=== PATIENT | female | born 1935 | race Caucasian/White ===

== ENCOUNTER 2021-10-30 16:12 | Outpatient (CLI) | payer MEDICARE, SELFPAY ==
[2021-10-30 20:46] LABS: Cholesterol* 192 mg/dL (90-199)
[2021-10-30 20:47] LABS: HDL Cholesterol* 67 mg/dL (>=50); LDL Cholesterol Calculated 107 mg/dL (<100); Triglycerides* 92 mg/dL (40-149)
== END 2021-10-30 16:13 | disposition home or self-care (01) ==
PROVIDERS: PCP Internal Medicine; Visit Provider Internal Medicine
DX: Z00.00 Encounter for general adult medical examination without abnormal findings (principal); E78.5 Hyperlipidemia, unspecified; E03.9 Hypothyroidism, unspecified; F41.9 Anxiety disorder, unspecified; F32.9 Major depressive disorder, single episode, unspecified
CPT/HCPCS: 80061; 84443

== ENCOUNTER 2022-06-25 13:59 | Emergency (ER) | payer MEDICARE, SELFPAY ==
[2022-06-25] VITALS (10 sets, daily range): BP systolic 128–151; BP diastolic 61–116; PULSE 89–121; RESP 20; TEMP 36.6; O2SAT 94–100; BMI 25.1
--- NOTE | 2022-06-25 14:26 | CRLHL7_ITS ---
For Patients: As a result of the Century Cures Act, medical imaging exams and procedure reports are released immediately into your electronic medical record. You may view this report before your referring provider. If you have questions, please contact your health care provider. INDICATION: Dyspnea on exertion. TECHNIQUE: Chest 2 views. COMPARISON: None. FINDINGS: Cardiovascular and mediastinum: Heart size and vasculature are normal in caliber and appearance. Lungs and pleural spaces: Chronic appearing interstitial prominence. Lungs are clear. No sign of infiltrate or mass. No sign of pleural effusion. No pneumothorax. Bones and soft tissues: No significant findings. IMPRESSION: Chronic appearing interstitial prominence. No focal consolidations. Dictated by Levy Ward MD @ 06/25/2022 4:20:13 PM (Electronically Signed)
--- NOTE | 2022-06-25 14:29 | ED_ITS ---
HPI - SOB/Dyspnea General Chief Complaint: Shortness of Breath/Dyspnea Stated Complaint: Short of breath Time Seen by Provider: 06/25/22 14:01 History of Present Illness HPI Narrative: 86-year-old woman sent over by the urgent care with concerns of cardiac disease. Care provider called ahead. She has been feeling shortness of breath and noting a just-tachycardia with ambulation over the last couple of weeks. Admittedly her sleep has been poor; she would typically described herself as a very good sleeper he even ?brag?ing about that ability. Does not describe herself as sleepy though but more generally quite fatigued. Over the same time. She has had some jags of coughing but not persistent. Initially productive of mucus has turned thicker. Did smoke maybe 60 years ago. She has not had any fever. Is not feeling lightheaded or nor describing dizziness. No chest pain. No abdominal pain. No melena or hematochezia noted. Notes siblings with pulmonary disease. Presents with EKG from clinic which have review which does show a right bundle branch block. There is a PVC. Otherwise I do not appreciate ischemic changes. I do not have prior for comparison at this time. Related Data Previous Rx's Medication Instructions Recorded levothyroxine 25 mcg tablet 25 mcg PO DAILY #90 tabs 10/31/21 lorazepam 0.5 mg tablet 0.5 mg PO QDAY PRN anxiety #30 tabs 06/14/22 Allergies Allergy/AdvReac Type Severity Reaction Status Date / Time Sulfa drugs Allergy Intermediate Rash Uncoded 06/25/22 13:26 Review of Systems Status of ROS: Reports: 10 or more systems reviewed and unremarkable except as noted in History and below [facility] Medical History History of colon polyps Surgical History History of hysterectomy (12/17/08) History of tubal ligation (12/17/08) Status post cataract extraction (12/17/08) Social History Smoking Status: Never smoker How often do you have a drink containing alcohol: never AUDIT-C Alcohol total score: 0 Non-prescribed substance use: denies use Little interest or pleasure in doing things: not at all Feeling down, depressed, or hopeless: not at all Exam Narrative: Exam Narrative: Very pleasant. Working her iPhone. A little levelock. Cranial nerves 2-12 otherwise intact. Voice is little hoarse. Oropharynx is a little sticky without erythema. Breathing easily otherwise. No stridor. Vitals noted. Skin is warm and dry without rash. Lower extremities with mild dependent edema. Well perfused peripherally. Lungs appear to be clear. Heart is in a regular rhythm in an elevated rate. Abdomen is soft protuberant nontender. No masses appreciated. Const: Vital Signs, click to edit/add: Vital Signs - 24 hr 06/25/22 14:05 06/25/22 14:49 06/25/22 14:58 Temperature 97.8 F Pulse Rate Pulse Rate [Pulse Oximeter] 100 121 H Respiratory Rate 20 20 Blood Pressure Blood Pressure [Ri ght Upper Arm] 151/81 H Pulse Oximetry 96 94 94 Oxygen Delivery Me thod Room Air Room Air 06/25/22 15:09 06/25/22 15:10 06/25/22 15:30 Temperature Pulse Rate 96 99 94 Pulse Rate [Pulse Oximeter] Respiratory Rate Blood Pressure 128/61 Blood Pressure [Ri ght Upper Arm] Pulse Oximetry 98 96 100 Oxygen Delivery Me thod 06/25/22 15:32 06/25/22 16:00 06/25/22 16:02 Temperature Pulse Rate 95 89 90 Pulse Rate [Pulse Oximeter] Respiratory Rate Blood Pressure 133/63 136/84 Blood Pressure [Ri ght Upper Arm] Pulse Oximetry 97 98 97 Oxygen Delivery Me thod 06/25/22 16:32 Temperature Pulse Rate Pulse Rate [Pulse Oximeter] Respiratory Rate Blood Pressure 129/116 H Blood Pressure [Ri ght Upper Arm] Pulse Oximetry Oxygen Delivery Me thod Documenting provider has reviewed patient's vital signs: yes Course Vital Signs Vital signs: Initial Vital Signs Temperature 97.8 F 06/25/22 14:05 Temperature Source Temporal Artery Scan 06/25/22 14:05 Pulse Rate 100 06/25/22 14:05 Respiratory Rate 20 06/25/22 14:05 Blood Pressure 151/81 H 06/25/22 14:05 Blood Pressure Mean 104 06/25/22 14:05 Pulse Oximetry 96 06/25/22 14:05 Oxygen Delivery Method 06/25/22 14:05 Vital Signs Temperature 97.8 F 06/25/22 14:05 Pulse Rate 100 06/25/22 14:05 Respiratory Rate 20 06/25/22 14:05 Blood Pressure 151/81 H 06/25/22 14:05 Pulse Oximetry 96 06/25/22 14:05 Oxygen Delivery Method 06/25/22 14:05 Temperature 97.8 F 06/25/22 14:05 Pulse Rate 90 06/25/22 16:02 Respiratory Rate 20 06/25/22 14:49 Blood Pressure 129/116 H 06/25/22 16:32 Pulse Oximetry 97 06/25/22 16:02 Oxygen Delivery Method 06/25/22 14:49 MDM - SOB/Dyspnea MDM Narrative Medical decision making narrative: Differential with exertionally dyspneic being heart failure, ischemic heart disease, pulmonary embolus, pericarditis/myocarditis, pneumothorax, pneumomediastinum, pneumonia The no events on monitor during time in the emergency department. Generally not hypoxic nor tachycardic. Well at rest. However ambulates in the emergency department with oxygen saturations to 94% and heart rate up to 121. Chest x-ray reviewed by me seems to be most with some fibrotic changes or possibly more interstitial prominence Labs overall reassuring. Radiology x-ray over-read IMPRESSION: Chronic appearing interstitial prominence. No focal consolidations. We discussed potential treatments. Perhaps viral process left her with some degree of ?bronchitis? and laryngitis. Discussed potential benefit of prednisone though unclear. She would like to proceed with that. Anticipate close follow-up with primary care provider. If not improved would warrant further cardiopulmonary evaluation. Medical Records Attestation: I reviewed the patient's medical records. Lab Data Attestation: I reviewed the patient's lab results. Labs: Lab Results 06/25/22 06/25/22 06/25/22 Range/Units 14:26 14:41 14:41 WBC 8.10 (4.50-11.00) K/uL RBC 4.22 (4.00-5.20) m/uL Hgb 12.4 (12.0-16.0) gm/dL Hct 38.2 (33.0-51.0) % MCV 91 (80-100) fL MCH 29 (26-34) pg MCHC 33 (32-36) gm/dL RDW Coeff of Aditi 16.5 H (11.5-15.5) % Plt Count 88 L (140-440) K/uL Neut % (Auto) 30.4 L (42.0-72.0) % Lymph % (Auto) 21.0 (20-44) % Hardin % (Auto) 46.5 H (0.0-11.0) % Eos % (Auto) 0.7 (0.0-7.0) % Baso % (Auto) 0.5 (0.0-3.0) % Neut # (Auto) 2.50 (1.7-7.0) K/uL Lymph # (Auto) 1.70 (0.90-2.90) K/uL Hardin # (Auto) 3.80 H (0.00-0.90) K/UL Eos # (Auto) 0.06 (0.00-0.50) K/uL Baso # (Auto) 0.04 (0.00-0.30) K/uL Diff Slide Review Acceptable Review (Acceptable) D-Dimer Quant (PE/DVT) 0.33 (0.00-0.50) ug/ml VBG pH (7.32-7.43) VBG pCO2 (40-50) mmHG VBG pO2 (25-47) mmHG VBG HCO3 (21-28) mmol/L Sodium (135-149) mmol/L Potassium (3.6-5.1) mmol/L Chloride (96-114) mmol/L Carbon Dioxide (20-32) mmol/L BUN (7-30) mg/dL Creatinine (0.5-1.5) mg/dL Estimated Creat Clear Estimated GFR ml/min Glucose (60-115) mg/dL Calcium (8.4-10.6) mg/dL Magnesium (1.5-2.6) mg/dL Total Bilirubin (0.1-1.5) mg/dL Direct Bilirubin (0.0-0.5) mg/dL AST (12-35) U/L ALT (4-35) U/L Alkaline Phosphatase (40-150) U/L Troponin I (0.01-0.04) ng/mL C-Reactive Protein (0.5-1.0) mg/dL NT-Pro-B Natriuret Pep pg/mL Total Protein (6.0-8.3) g/dL Albumin (3.3-5.0) g/dL TSH (0.270-4.20) uIU/mL Urine Color (Yellow) Urine Appearance (Clear) Urine pH (5.0-8.5) Ur Specific [place] (1.000-1.030) Urine Protein (Negative) Urine Glucose (UA) (Negative) Urine Ketones (Negative) Urine Blood (Negative) Urine Nitrite (Negative) Urine Bilirubin (Negative) Urine Urobilinogen (0.2-1.0) Ur Leukocyte Esterase (Negative) Urine RBC (0-2) Urine WBC (0-5) Ur Squamous Epith Cells (None-Few) Urine Bacteria (None) SARS-CoV-2 (PCR) Negative SARS-CoV-2 (Negative) Influenza Type A (PCR) Negative PCR FLU A (Negative) Influenza Type B (PCR) Negative PCR FLU B (Negative) RSV (PCR) Negative PCR RSV (Negative) 06/25/22 06/25/22 06/25/22 Range/Units 14:41 14:41 14:41 WBC (4.50-11.00) K/uL RBC (4.00-5.20) m/uL Hgb (12.0-16.0) gm/dL Hct (33.0-51.0) % MCV (80-100) fL MCH (26-34) pg MCHC (32-36) gm/dL RDW Coeff of Aditi (11.5-15.5) % Plt Count (140-440) K/uL Neut % (Auto) (42.0-72.0) % Lymph % (Auto) (20-44) % Hardin % (Auto) (0.0-11.0) % Eos % (Auto) (0.0-7.0) % Baso % (Auto) (0.0-3.0) % Neut # (Auto) (1.7-7.0) K/uL Lymph # (Auto) (0.90-2.90) K/uL Hardin # (Auto) (0.00-0.90) K/UL Eos # (Auto) (0.00-0.50) K/uL Baso # (Auto) (0.00-0.30) K/uL Diff Slide Review (Acceptable) D-Dimer Quant (PE/DVT) (0.00-0.50) ug/ml VBG pH 7.337 (7.32-7.43) VBG pCO2 52 H (40-50) mmHG VBG pO2 23.2 L (25-47) mmHG VBG HCO3 28 (21-28) mmol/L Sodium 140 (135-149) mmol/L Potassium 4.8 (3.6-5.1) mmol/L Chloride 106 (96-114) mmol/L Carbon Dioxide 28 (20-32) mmol/L BUN 26 (7-30) mg/dL Creatinine 1.1 (0.5-1.5) mg/dL Estimated Creat Clear 28.73 Estimated GFR 50 ml/min Glucose 110 (60-115) mg/dL Calcium 9.0 (8.4-10.6) mg/dL Magnesium 1.8 (1.5-2.6) mg/dL Total Bilirubin 0.6 (0.1-1.5) mg/dL Direct Bilirubin 0.2 (0.0-0.5) mg/dL AST 23 (12-35) U/L ALT 14 (4-35) U/L Alkaline Phosphatase 76 (40-150) U/L Troponin I < 0.01 L (0.01-0.04) ng/mL C-Reactive Protein 1.0 (0.5-1.0) mg/dL NT-Pro-B Natriuret Pep 153 pg/mL Total Protein 6.7 (6.0-8.3) g/dL Albumin 4.2 (3.3-5.0) g/dL TSH (0.270-4.20) uIU/mL Urine Color (Yellow) Urine Appearance (Clear) Urine pH (5.0-8.5) Ur Specific [place] (1.000-1.030) Urine Protein (Negative) Urine Glucose (UA) (Negative) Urine Ketones (Negative) Urine Blood (Negative) Urine Nitrite (Negative) Urine Bilirubin (Negative) Urine Urobilinogen (0.2-1.0) Ur Leukocyte Esterase (Negative) Urine RBC (0-2) Urine WBC (0-5) Ur Squamous Epith Cells (None-Few) Urine Bacteria (None) SARS-CoV-2 (PCR) (Negative) Influenza Type A (PCR) (Negative) Influenza Type B (PCR) (Negative) RSV (PCR) (Negative) 06/25/22 06/25/22 Range/Units 14:41 14:53 WBC (4.50-11.00) K/uL RBC (4.00-5.20) m/uL Hgb (12.0-16.0) gm/dL Hct (33.0-51.0) % MCV (80-100) fL MCH (26-34) pg MCHC (32-36) gm/dL RDW Coeff of Aditi (11.5-15.5) % Plt Count (140-440) K/uL Neut % (Auto) (42.0-72.0) % Lymph % (Auto) (20-44) % Hardin % (Auto) (0.0-11.0) % Eos % (Auto) (0.0-7.0) % Baso % (Auto) (0.0-3.0) % Neut # (Auto) (1.7-7.0) K/uL Lymph # (Auto) (0.90-2.90) K/uL Hardin # (Auto) (0.00-0.90) K/UL Eos # (Auto) (0.00-0.50) K/uL Baso # (Auto) (0.00-0.30) K/uL Diff Slide Review (Acceptable) D-Dimer Quant (PE/DVT) (0.00-0.50) ug/ml VBG pH (7.32-7.43) VBG pCO2 (40-50) mmHG VBG pO2 (25-47) mmHG VBG HCO3 (21-28) mmol/L Sodium (135-149) mmol/L Potassium (3.6-5.1) mmol/L Chloride (96-114) mmol/L Carbon Dioxide (20-32) mmol/L BUN (7-30) mg/dL Creatinine (0.5-1.5) mg/dL Estimated Creat Clear Estimated GFR ml/min Glucose (60-115) mg/dL Calcium (8.4-10.6) mg/dL Magnesium (1.5-2.6) mg/dL Total Bilirubin (0.1-1.5) mg/dL Direct Bilirubin (0.0-0.5) mg/dL AST (12-35) U/L ALT (4-35) U/L Alkaline Phosphatase (40-150) U/L Troponin I (0.01-0.04) ng/mL C-Reactive Protein (0.5-1.0) mg/dL NT-Pro-B Natriuret Pep pg/mL Total Protein (6.0-8.3) g/dL Albumin (3.3-5.0) g/dL TSH 3.990 (0.270-4.20) uIU/mL Urine Color Yellow (Yellow) Urine Appearance Clear (Clear) Urine pH 6.0 (5.0-8.5) Ur Specific [place] 1.020 (1.000-1.030) Urine Protein 2+ A (Negative) Urine Glucose (UA) Negative (Negative) Urine Ketones Negative (Negative) Urine Blood Trace-intact A (Negative) Urine Nitrite Negative (Negative) Urine Bilirubin Negative (Negative) Urine Urobilinogen 0.2 (0.2-1.0) Ur Leukocyte Esterase Negative (Negative) Urine RBC 0-2 (0-2) Urine WBC 0-2 (0-5) Ur Squamous Epith Cells None (None-Few) Urine Bacteria None (None) SARS-CoV-2 (PCR) (Negative) Influenza Type A (PCR) (Negative) Influenza Type B (PCR) (Negative) RSV (PCR) (Negative) Discharge Plan Discharge Clinical Impression: Exertional dyspnea, Laryngitis Patient Disposition: Home, Self-Care Condition: Stable Additional Instructions: Keep trying to be active. I see no reason why you can not. Perhaps it is just a bug as you say that has gotten you under the weather so to speak. See how it goes after this treatment and then follow up with Dr. Sue to consider further evaluation. Your oxygen saturations did drop a little while you're walking and your heart rate did indeed go up. Stay well-hydrated. Maybe sleep under the mist of a cool mist humidifier. prednisone from [facility] Next return for increasing persistent shortness of breath, chest pain, weakness, lightheadedness. Prescriptions: No Action levothyroxine 25 mcg tablet 25 mcg PO DAILY Qty: 90 3RF lorazepam 0.5 mg tablet 0.5 mg PO QDAY PRN (Reason: anxiety) Qty: 30 0RF Rx Instructions: USE SPARINGLY Follow Up/Referrals: Nette Sue MD [Primary Care Provider] - Stand Alone Forms: [employer] Info Instructions
[2022-06-25 14:50] LABS: Basophils Absolute Auto 0.04 K/uL (0.00-0.30); Basophils Percent Auto 0.5 % (0.0-3.0); Eosinophils Absolute Auto 0.06 K/uL (0.00-0.50); Eosinophils Percent Auto 0.7 % (0.0-7.0); HCO3 VBG 28 mmol/L (21-28); Hematocrit 38.2 % (33.0-51.0); Hemoglobin* 12.4 gm/dL (12.0-16.0); Immature Granulocytes Abs Auto 0.07 K/uL (0.00-0.30); Immature Granulocytes Pct Auto 0.9 %; Mean Corpuscular HGB Conc 33 gm/dL (32-36); Mean Corpuscular Hemoglobin 29 pg (26-34); Mean Corpuscular Volume 91 fL (80-100); Monocytes Percent Auto 46.5 % (0.0-11.0); Neutrophils Percent Auto 30.4 % (42.0-72.0); PCO2 VBG 52 mmHG (40-50); PO2 VBG 23.2 mmHG (25-47); Platelet Count* 88 K/uL (140-440); RDW Coefficient of Variation % 16.5 % (11.5-15.5); Red Blood Count 4.22 m/uL (4.00-5.20); pH VBG 7.337 (7.32-7.43)
--- NOTE | 2022-06-25 14:50 | ED.NURSE ---
pt ambulating at fast pace, states she is more sob than normal but does not appear sob. sats 94% while amblulating. HR 121
[2022-06-25 15:10] LABS: Appearance Urine Clear (Clear); Bilirubin Urine Negative (Negative); Blood Urine Trace-intact (Negative); Color Urine Yellow (Yellow); Glucose Urine Negative (Negative); Ketones Urine Negative (Negative); Leukocyte Esterase Urine Negative (Negative); Nitrite Urine Negative (Negative); Protein Urine 2+ (Negative); Urobilinogen Urine 0.2 (0.2-1.0)
[2022-06-25 15:16] LABS: PCR FLU A Negative PCR FLU A (Negative); PCR FLU B Negative PCR FLU B (Negative); PCR RSV Negative PCR RSV (Negative); SARS PCR* Negative SARS-CoV-2 (Negative)
[2022-06-25 15:24] LABS: Albumin* 4.2 g/dL (3.3-5.0); Sodium* 140 mmol/L (135-149)
[2022-06-25 15:25] LABS: Potassium* 4.8 mmol/L (3.6-5.1)
[2022-06-25 15:27] LABS: Creatinine* 1.1 mg/dL (0.5-1.5); Est. Creatinine Clearance* 28.73; Estimated Glomerular Filt Rate 50 ml/min
[2022-06-25 15:27] LABS: RBC Urine 0-2 (0-2); WBC Urine 0-2 (0-5)
[2022-06-25 15:28] LABS: Alanine Aminotransferase* 14 U/L (4-35); Alkaline Phosphatase* 76 U/L (40-150); Aspartate Amino Transferase* 23 U/L (12-35); Bilirubin Direct* 0.2 mg/dL (0.0-0.5); Bilirubin Total* 0.6 mg/dL (0.1-1.5); Blood Urea Nitrogen* 26 mg/dL (7-30); Carbon Dioxide* 28 mmol/L (20-32); Glucose* 110 mg/dL (60-115); Magnesium* 1.8 mg/dL (1.5-2.6); Total Protein* 6.7 g/dL (6.0-8.3)
[2022-06-25 15:37] LABS: NT Pro B Type NatriureticPept* 153 pg/mL
[2022-06-25 15:41] LABS: Chloride* 106 mmol/L (96-114)
[2022-06-25 15:45] LABS: Troponin I* < 0.01 ng/mL (0.01-0.04)
[2022-06-25 15:48] LABS: D Dimer Quantitative* 0.33 ug/ml (0.00-0.50)
[2022-06-25 15:52] LABS: Slide Review Reflex Yes
[2022-06-25 15:53] LABS: Slide Review Acceptable Review (Acceptable)
== END 2022-06-25 16:52 | disposition home or self-care (01) ==
PROVIDERS: Emergency Provider Family Medicine; PCP Internal Medicine
DX: R06.09 Other forms of dyspnea (principal); J04.0 Acute laryngitis
CPT/HCPCS: 36415; 71046; 80048; 80076; 81001; 82803; 83735; 83880; 84443; 84484; 85025; 85379; 86140; 87502; 87634; 87635; 94761; 99284

== ENCOUNTER 2022-08-16 07:44 | Outpatient (CLI) | payer MEDICARE, SELFPAY ==
--- NOTE | 2022-08-16 08:00 | CRLHL7_ITS ---
For Patients: As a result of the Century Cures Act, medical imaging exams and procedure reports are released immediately into your electronic medical record. You may view this report before your referring provider. If you have questions, please contact your health care provider. [facility] ??? [facility] MYOCARDIAL PERFUSION SCAN CLINICAL HISTORY: 86-year-old female. Right bundle branch block. Dyspnea on exertion. Hyperlipidemia. Height 5 feet 1 inch, 134 pounds. TECHNIQUE: (Resting SPECT and Stress Gated SPECT with wall motion and ejection fraction) Stress: Pharmacologic ??? Regadenoson (0.4) (IV) walking protocol Dose (Stress/Rest): 31.9 mCi/8.68 mCi Tc-99m Sestamibi (IV) Comparison: None FINDINGS: There is good uptake of activity by the left ventricle. No left ventricular enlargement is noted. End-diastolic volume 56 mL. End-systolic volume 17 mL. There are no significant fixed or reversible defects are identified. Gated images demonstrate a normal left ventricular ejection fraction of 70 percent. No regional wall motion abnormalities are identified. IMPRESSION: 1. No evidence of significant myocardial ischemia or infarction. 2. Normal left ventricular ejection fraction of 70 percent. This study was jointly reviewed by radiology and cardiology. ALEXIS FAITH M.D. Diagnostic/Nuclear Medicine Radiologist [employer] [email or web address] Transcribed: 3:39 PM CO-READER SANTY GUERRIER M.D. CARDIOLOGY DW/Dictated by: Alexis Faith MD @ 08/16/2022 2:24:00 PM (Electronically Signed)
[2022-08-16] MEDS: SODIUM CHLORIDE 0.9 % (FLUSH) 10 ML SYRINGE IVF (09:04)
[2022-08-16] MEDS: REGADENOSON 0.4 MG/5 ML SYRINGE IVP (09:04)
--- NOTE | 2022-08-16 10:00 | W.PM.STED ---
Stress Test Note Date Date Seen: 08/16/22 Date of test: 08/16/22 Providers Primary care provider: Nette Sue Stress test physician: Fatoumata Us Stress Test Note Stress test ordered: Lexiscan Indication for test: Dyspnea on exertion Stress test medicine: Lexiscan Results discussion: Resting EKG: Sinus rhythm, 90 beats per minute. Right bundle branch block. Resting blood pressure: 132/81 Stress test: Patient completed a walking Lexiscan. She did feel some mild shortness of breath. Her pulse oximetry was checked during the walking portion of this stress test about 3 minutes in, was good at 96%. No definitive ischemic change seen, no arrhythmia patient had a maximal blood pressure of 167/68. Await imaging studies for a full formal diagnostic. Patient was discharged from the stress test portion in stable condition. Impression: Negative EKG portion of this Lexiscan. Follow up suggested: Patient will have her post-stress/exercise images taken. These will be read by Cardiology/Radiology to complete a full formal diagnostic stress test. She will await the report from her primary care provider.
[2022-08-16 10:41] VITALS: BP 151/83; PULSE 113
== END 2022-08-16 07:45 | disposition home or self-care (01) ==
LOC: STRESS 07:45
PROVIDERS: PCP Internal Medicine; Visit Provider Internal Medicine
DX: R06.09 Other forms of dyspnea (principal); I45.10 Unspecified right bundle-branch block; E78.5 Hyperlipidemia, unspecified
CPT/HCPCS: 78452; 93016; 93017; A9500; J2785

== ENCOUNTER 2022-12-05 12:53 | Outpatient (CLI) | payer MEDICARE, SELFPAY ==
--- NOTE | 2022-12-05 13:00 | XR_ITS ---
Final Report Patient: EMMANUELLE LEAVITT Facility:?[facility] Patient ID:?[id number] Study:?DEXA Bone Density DEXA - SPINE/HIPS-12/05/2022 2:35:30 PM Ordering Physician:Kenzie Angel Final Report: DXA BONE MINERAL DENSITY STUDY Current height (in): 65.7. Weight (lb): 125.0. Menopause age: N/A. Ethnicity: White. Reason for exam: Postmenopausal screening. 1. Have you had a previous hip or vertebral fracture? No. 2. Have you had any fractures during your adult life which did not result from significant trauma (e.g., auto accident)? No. 3. Did either of your parents have a hip fracture? No. 4. Do you smoke? No. 5. Have you ever taken Glucocorticoids? No. 6. Do you have rheumatoid arthritis? No. 7. Do you have secondary osteoporosis? No. 8. Do you drink 3 or more alcoholic drinks per day? No. 9. Are you being treated for osteoporosis? No. 10. Have you ever taken any of the following medications: Actonel, Evista, Fosamax, Miacalcin, Reclast, Boniva, Forteo, HRT (i.e. estrogen/hormone therapy), Protelos, Prolia, Vitamin D, Calcium, other ? please specify. ANSWER: No. 11. Do you have any of the following medical conditions: Anorexia or bulimia, asthma or emphysema, end stage renal disease, hyperparathyroidism, any seizure disorders, cancer, inflammatory bowel diseases, hysterectomy, other ? please specify. ANSWER: No. 12. What was your maximum height (inches)? 62. 13. Do you perform weight bearing exercise regularly? No. 14. Do you regularly consume dairy products? Yes. 15. Do you drink caffeinated beverages? Yes. 16. At what age did your period start? 15. 17. Are you premenopausal? No. 18. How many full term pregnancies have you had? 3. 19. Have you ever missed your period for more than 6 months in a row (not including or menopause)? No. TECHNIQUE: Bone mineral density study was performed using the [employer]. FINDINGS: The results of the study expressed as bone mineral density (BMD) are as follows: Lumbar spine L1 to L4: BMD: 1.020 g/cm2. T-score: -0.2. Z-score: 2.6. Neck Left: BMD: 0.763 g/cm2. T-score: -0.8. Z-score: 1.8. Right: BMD: 0.767 g/cm2. T-score: -0.7. Z-score: 1.8. Total Left: BMD: 0.846 g/cm2. T-score: -0.8. Z-score: 1.5. Right: BMD: 0.833 g/cm2. T-score: -0.9. Z-score: 1.4. IMPRESSION: Normal bone density. *Comparison exams done prior to 09/2019 were performed on different unit, [employer]. COMPARISON: Compared with scan of 04/03/2010, the bone mineral density has decreased by 0.3 percent at the spine and decreased by 6.6 percent at the hip. Steve Fontenot M.D. Diagnostic Radiologist [employer] [email or web address] DSM/osvaldo: D& Transcribed: 10:57 am DW/Dictated by: Steve Fontenot MD @ 12/10/2022 8:19:00 AM (Electronic Signature)
== END 2022-12-05 12:54 | disposition home or self-care (01) ==
LOC: RAD 12:54
PROVIDERS: PCP Family Medicine; Visit Provider Family Medicine
DX: Z13.820 Encounter for screening for osteoporosis (principal); Z78.0 Asymptomatic menopausal state
CPT/HCPCS: 77080